=== PATIENT | male | born 1975 | race Caucasian/White ===

== ENCOUNTER 2025-06-28 12:05 | Emergency (ER) | payer BC, SELFPAY ==
[2025-06-28 12:15] VITALS: BP 154/100
[2025-06-28 12:48] LABS: Hematocrit 44.1 % (39.0-52.0); Hemoglobin 15.1 g/dL (13.0-18.0); Mean Corp Hgb Conc. 34.2 g/dL (33.0-37.0); Mean Corpuscular Volume 88.4 fL (80.0-94.0); Nucleated Red Blood Cells % 0 % (-); Platelet Count 188 10^3/uL (130-400); Red Cell Dist. Width 12.6 % (11.5-14.5)
[2025-06-28 12:56] LABS: ALT (SGPT) 41 U/L (0-50); AST (SGOT) 38 U/L (17-59); Albumin 4.7 g/dl (3.5-5.0); Alkaline Phosphatase 72 U/L (38-126); Blood Urea Nitrogen 13 mg/dl (9-20); Calcium 9.3 mg/dl (8.4-10.2); Carbon Dioxide 27 mmol/L (22-30); Chloride 103 mmol/L (98-107); Glucose 96 mg/dl (70-99); Potassium 4.1 mmol/L (3.5-5.1); Sodium 138 mmol/L (135-145); Total Protein 7.1 g/dl (6.3-8.2); eGFR > 60.00
--- NOTE | 2025-06-28 13:29 | ED.GENMED ---
History of Present Illness
General
Chief Complaint: Flank Pain
Time Seen by Provider: 06/28/25 12:35
History of Present Illness
History of Present Illness:
50-year-old male presents to the emergency department for evaluation of left low back pain for the past 2 days. Pain is sharp in nature, nonradiating, without modifying factors. Not colicky in nature. Worse when twisting or when coughing. Denies
lower urinary tract voiding symptoms, hematuria, diarrhea, vomiting, or fevers. Has had a kidney stone before and is uncertain if this feels similar.
Review of Systems
Review of Systems
Allergies reviewed?: Yes
All Other Systems: ROS reviewed and negative except as documented in HPI and ROS
Phy Exam
Physical Exam
Physical Exam:
GEN: Well appearing, NAD, WDWN
HEENT: Oral mucosa moist, no scleral icterus
Cardiac: Regular rate
Lung: No respiratory distress, no tachypnea
Abdomen: Soft, grossly nontender, no CVA tenderness
MSK: No gross deformity or injuries, no reproducible tenderness to the midline lumbar spine or paraspinous musculature
Skin: Good color, no pallor or jaundice, no rashes
Neuro: AO x3, moves all extremities freely
Psych: Calm, cooperative
Course
Orders/Labs/Results
Orders:
Orders
06/28/25 12:30
Complete Blood Count/With Diff Urgent
Comprehensive Metabolic Panel Urgent
Urinalysis Reflex To Culture Urgent
Date Specimen was Collected: 06/28/25
Time Specimen was Collected: 12:18
Abnormal Lab Results
06/28/25
12:30
Abs Immat Gran (auto) 0.1 H 10^3/uL
(0-0.05)
Absolute Monos (auto) 0.7 H 10^3/uL
(0.1-0.6)
Immature Gran % 0.6 H %
(0-0.5)
06/28/25 12:30
06/28/25 12:30
Vital Signs
Initial and Last Documented VS:
Initial Vital Signs
Temp Pulse Resp BP Pulse Ox
98.0 F 96 16 154/100 98
06/28/25 12:15 06/28/25 12:15 06/28/25 12:15 06/28/25 12:15 06/28/25 12:15
Last Documented Vital Signs
Temp Pulse Resp BP Pulse Ox
98.0 F 86 19 131/84 98
06/28/25 12:15 06/28/25 14:10 06/28/25 14:10 06/28/25 14:10 06/28/25 14:10
MDM/Problems Addressed
MDM/Problems Addressed:
Patient's pain is not consistent with kidney stone as it is not colicky and nonradiating, nonreproducible on exam and the location is lower than the kidney region. He has no hematuria which is reassuring. Likely mechanical/musculoskeletal low back
pain. Discussed supportive care with NSAIDs
*Pulse Oximetry
SaO2: 98
Oxygen Mode of Delivery: Room air
Patient hypoxic: no
*Critical Care Note
Total Time (30-74mins, 75-104mins- exclusive of procedures): Not Applicable
ED Attending Note
-
Portions of this chart may have been created with voice recognition software.� Occasional wrong word or��sound alike� substitutions may have occurred due to the inherent limitations of voice recognition software.
Discharge Plan
Departure
Patient Disposition: Home (Routine Discharge)
Date of Disposition: 06/28/25
Time of Disposition: 14:00
Patient with high blood pressure during this ER visit?: No
Discharge Problem:
Lumbar back pain
Instructions: Low back pain - ED (DC)
Prescriptions:
New
celecoxib 200 mg capsule
200 mg PO BID Qty: 20 0RF
Referrals:
Celio Meza MD [Family Provider, Family Practice]
Interventions
Interventions:
*General Assessment Last Done: 06/28/25 12:15
*Neglect/Abuse Screening Last Done: 06/28/25 12:15
*Nursing Disposition Last Done: 06/28/25 14:47
VD-Aphpqq-Fpacrercej Assessment Last Done: 06/28/25 12:50
ED-Male Genitourinary Assessment Last Done: 06/28/25 12:50
Discharge Date and Time
Discharge Date/Time: 06/28/25 14:47
Print Language: [place]
[2025-06-28 13:48] LABS: Urine Character Clear (Clear)
[2025-06-28 14:10] VITALS: BP 131/84
== END 2025-06-28 14:47 | disposition home or self-care (01) ==
LOC: EMR 12:05
PROVIDERS: Emergency Medicine; EMERGENCY PHYSICIAN Emergency Medicine; FAMILY PHYSICIAN Family Medicine
DX: M54.50 Low back pain, unspecified (principal)
CPT/HCPCS: 99283; 80053; 81003; 85025